=== PATIENT | female | born 1975 | race Caucasian/White ===

== ENCOUNTER 2021-04-26 10:21 | Outpatient (REF) | payer OTHER, SELFPAY ==
--- NOTE | ~2021-04-26 | MM_ITS ---
EXAMINATION: MM SCREENING DIGITAL BREAST TOMOSYNTHESIS, BILATERAL CLINICAL INFORMATION: Screening. Asymptomatic. The lifetime risk of breast cancer based on the Tyrer-Cuzick Model is 13%. COMPARISON: Outside mammography: 05/05/2020, 04/24/2020 ([facility]). TECHNIQUE: Digital breast tomosynthesis is performed in both the craniocaudal and mediolateral oblique views along with computer-aided detection (CAD). Synthesized 2D images are generated from the tomosynthesis. FINDINGS: There are scattered areas of fibroglandular density (ACR BI-RADS breast composition Category b). There are no significant masses, abnormal calcifications, or other abnormalities. Left breast has a stable macrolobulated nodule posterior 11:00 position with adjacent biopsy clip marker. There is no developing density. The axilla and skin contours are unremarkable. MM/MM tomosynthesis screening BI IMPRESSION: No mammographic evidence of malignancy. ASSESSMENT: BI-RADS 2: Benign RECOMMENDATION: Routine annual mammography screening. This patient's information was entered into a reminder system with a target due date for their next mammogram.
== END 2021-04-26 10:22 | disposition home or self-care (01) ==
LOC: HO.MAMMO 10:21
PROVIDERS: Absent Provider Obstetrics & Gynecology; PCP Family Medicine; Visit Provider Family Medicine
DX: Z12.31 Encounter for screening mammogram for malignant neoplasm of breast (principal)
CPT/HCPCS: 77063; 77067

== ENCOUNTER → 2021-09-14 09:00 | Outpatient (BNVA) | payer OTHER, SELFPAY | PROVIDERS: PCP Family Medicine; Visit Provider Physician Assistant | DX: Z13.89 Encounter for screening for other disorder (principal) ==

== ENCOUNTER 2021-12-09 09:24 | Day surgery (SDC) | payer OTHER, SELFPAY ==
[2021-12-03 13:08] VITALS: BMI 29.2
--- NOTE | 2021-12-08 08:58 | HO.ANESPROP2 ---
Documented by User: Caprice Leiva NP 12/08/21 08:59 HPI - Anesthesia Eval Consult details Narrative: 46yo F for Colonoscopy PMFSH Active Problems Active Problems: All Active Problems (Updated 12/03/21 @ 13:07 by Dionne Chung, NOA) Positive colorectal cancer screening using Cologuard test (Acute) Past Medical History Medical History No pertinent past medical history Family History Family History Mother HTN (hypertension) Father Anxiety disorder Agoraphobia Maternal Grandmother Breast cancer Thyroid disease Maternal Grandfather Stroke Paternal Grandfather Heart attack Colon cancer Heart disease Sister Scoliosis Surgical History Surgical History H/O tubal ligation (~03/13/02) History of ankle surgery Hx of section Hx of removal of cyst Social History Social History (Updated 12/09/21 @ 10:07 by Kati Gilliam MD) Household Members: Spouse Alcohol intake: current Alcohol intake frequency: holidays/special occasions only Patient Tobacco Use Status: Former Tobacco user Quit Date: 2019 Tobacco use type: Cigarette Cigarette Packs Per Day: 1 Years Smoked: 31 Substance Use Type: Marijuana Last Used Substance: Hours (ago) Are you DNR?: No Advance Directives: No Advance Directives Information Provided: Yes Advance Directives on File: No Recently lost weight without trying: No Eating poorly because of decreased appetite: No Nutrition Risks: No Nutritional Risk Meds Allergies Allergy/AdvReac Type Severity Reaction Status Date / Time No Known Allergies Allergy Verified 12/03/21 13:07 Home Medications Medication Instructions Recorded Confirmed Last Taken Type duloxetine 60 mg capsule,delayed 60 mg PO BID 09/14/21 12/03/21 Unknown History release (Cymbalta) levonorgestrel 20 mcg/24 hours (7 intrauterine 09/14/21 09/14/21 Unknown History yrs) 52 mg intrauterine device (Mirena) loratadine 10 mg tablet (Claritin) 10 mg PO DAILY 09/14/21 12/03/21 Unknown History Exam Exam Date and Time: December 08, 2021 0858 Height,Weight and Vital Signs: Height 5 ft 2 in Weight 72.575 kg Assessment and Plan Assessment Anesthesia Assessment: Chart Reviewed Documented by User: Kati Gilliam MD 12/09/21 10:53 PMFSH Active Problems Active Problems: All Active Problems (Updated 12/03/21 @ 13:07 by Dionne Chung, RN) Positive colorectal cancer screening using Cologuard test (Acute) Anxiety/Depression Past Medical History Medical History No pertinent past medical history Family History Family History Mother HTN (hypertension) Father Anxiety disorder Agoraphobia Maternal Grandmother Breast cancer Thyroid disease Maternal Grandfather Stroke Paternal Grandfather Heart attack Colon cancer Heart disease Sister Scoliosis Family history of problems with anesthesia: No Surgical History Surgical History H/O tubal ligation (~03/13/02) History of ankle surgery Hx of section Hx of removal of cyst History of Problems with Anesthesia: No Social History Social History (Updated 12/09/21 @ 10:07 by Kati Gilliam MD) Household Members: Spouse Alcohol intake: current Alcohol intake frequency: holidays/special occasions only Patient Tobacco Use Status: Former Tobacco user Quit Date: 2019 Tobacco use type: Cigarette Cigarette Packs Per Day: 1 Years Smoked: 31 Substance Use Type: Marijuana Last Used Substance: Hours (ago) Are you DNR?: No Advance Directives: No Advance Directives Information Provided: Yes Advance Directives on File: No Recently lost weight without trying: No Eating poorly because of decreased appetite: No Nutrition Risks: No Nutritional Risk Meds Allergies Allergy/AdvReac Type Severity Reaction Status Date / Time No Known Allergies Allergy Verified 12/03/21 13:07 Home Medications Medication Instructions Recorded Confirmed Last Taken Type duloxetine 60 mg capsule,delayed 60 mg PO BID 09/14/21 12/03/21 Unknown History release (Cymbalta) levonorgestrel 20 mcg/24 hours (7 intrauterine 09/14/21 09/14/21 Unknown History yrs) 52 mg intrauterine device (Mirena) loratadine 10 mg tablet (Claritin) 10 mg PO DAILY 09/14/21 12/03/21 Unknown History Exam Airway Mallampati Class: II TM Dist: >3cm Neck ROM: Full Loose/Missing/Broken Teeth: No (Patient denies) Heart: RRR Lungs: Wheezes bilaterally. Lungs CTAB post albuterol treatment Other: Patient admits to recent cold, cough but denies fever, malaise. Afebrile today. Assessment and Plan Assessment Anesthesia Assessment: Anesthesia Plan Discussed Final Anesthetic Review Family History of Problems with Anesthesia: No History of Problems with Anesthesia: No NPO: Yes ASA Class: II Final Preanesthetic Review: No Changes in Pt Med Stat, Meds/Allgs Chart Reviewed, Consent Obtained/Reviewed and Anes Risks/Benef Reviewed Patient Risk: Intermediate Procedure Risk: Low Assessment/Block/Sedation in SS: Assess/Block/Sedation-SS Anesthetic Plan Anesthetic Plan: MAC: Disposition: Standard PACU
[2021-12-09 10:13] VITALS: PULSE 92; RESP 16; O2SAT 100
[2021-12-09] MEDS: Albuterol Sulfate (0.083%) 2.5 MG/3 ML VIAL.NEB INHALE (10:13)
--- NOTE | 2021-12-09 10:13 | MHC.SHP ---
Pre-Procedural Eval Section A Date of Service: 12/09/21 Section B Chief Complaint: Other fecal abnormalities Details of Present Illness: pos cologuard Relevant Family History (Specify if Yes): No Relevant Social History: None (ex smoker) Present Medications: see Short Stay Collaborative assessment Medical History: No relevant PMH History of Previous Operations: Relevant previous surgery/procedure and date(s) (H/O tubal ligation (~03/13/02) History of ankle surgery Hx of section Hx of removal of cyst) Allergies: Allergies Allergy/AdvReac Type Severity Reaction Status Date / Time No Known Allergies Allergy Verified 12/03/21 13:07 Review of Systems Sugical H&P ROS: Negative: Constitution, Cardiovascular, Respiratory, Neurological, Psychiatric, Hem-Onc, Allergic/Immunologic, Gastrointestinal, Genitourinary, Musculoskeletal, Integumentary, Endocrine and Eyes/Ears/Nose/Throat Exam Surgical H&P Exam: Normal: HEENT, Normal: Heart, Normal: Lungs, Normal: Extremities, Normal: Abdomen, Normal: Skin and Normal: Neurological Plan Diagnosis/Plan: Unchanged I have reviewed the history and physical and performed a pertinent physical examination on my patient. No changes have occurred unless specified.
[2021-12-09] MEDS: Lactated Ringers 1,000 ML 100 ML IVCONT (10:20)
--- NOTE | 2021-12-09 11:04 | W.PM.OPN ---
Operative Note Operative Note Date of Service: 12/09/21 Narrative: Operative Information Procedure Description: Colonoscopy Indication: pos cologuard test Anesthesia: MAC COLONOSCOPY Instrument: Olympus variable stiffness pediatric scope 190L Colonoscopy Monitoring: Vital signs and clinical assessment, continuous EKG monitoring, Pulse oximetry, Carbon Dioxide monitoring and blood pressure monitoring were done throughout the procedure. Colon withdrawal time was 12 minutes. Procedure: The patient was placed in the left lateral decubitis position and pre-procedure medications were administered. After a digital rectal examination of the ano-rectum, the video colonoscope was inserted into the rectum and advanced through the colon to the cecum/TI. The colonoscope was slowly withdrawn in a retrograde panoramic fashion and the colon mucosa was carefully examined including a retroflexed view of the rectum. Findings and interventions are described below. Procedure Difficulty: easy Findings: Terminal Ileum-normal Right sided retroflexion --normal Cecum:normal Ascending Colon: normal Transverse Colon -normal Descending Colon: 10 mm sessile polyp removed with cold snare, x 1 clip applied for hemostasis Sigmoid Colon: 10 mm sessile polyp removed with cold snare Rectum: Retroflexion with small internal hemorrhoids, grade I, x2 sessile polyps 8-10 mm removed with cold snare Anorectum - normal Colon preparation: [place] Bowel Preparation Scale Right colon; 3 Transverse colon: 3 Left colon; 3 (0 = Unprepared colon segment with mucosa not seen due to solid stool that cannot be cleared. 1 = Portion of mucosa of the colon segment seen, but other areas of the colon segment not well seen due to staining, residual stool and/or opaque liquid. 2 = Minor amount of residual staining, small fragments of stool and/or opaque liquid, but mucosa of colon segment seen well. 3 = Entire mucosa of colon segment seen well with no residual staining, small fragments of stool or opaque liquid) Impression and Post Procedure Diagnosis: polyps internal hemorrhoids Plan: High fiber diet leaflet Avoid straining at stool, epsom salts and sitz bath, anusol supps or cream Repeat Colonoscopy in 3 years due to polyp burden or earlier if clinically indicated Above findings were reviewed with the patient and relevant handouts were provided if indicated.
[2021-12-09 12:02] VITALS: BP 106/79; PULSE 93; RESP 16; TEMP 36.4; O2SAT 99
[2021-12-09 12:17] VITALS: BP 123/80; PULSE 78; RESP 18; TEMP 36.3; O2SAT 100
== END 2021-12-09 13:12 | disposition home or self-care (01) ==
PROVIDERS: PCP Family Medicine; Visit Provider Internal Medicine Gastroenterology
PROC: 0DJD8ZZ Inspection of Lower Intestinal Tract, Via Natural or Artificial Opening Endoscopic (ICD-10-PCS; CPT 45378; principal; 2021-12-09 11:20)
DX: R19.5 Other fecal abnormalities (principal); D12.5 Benign neoplasm of sigmoid colon; K63.5 Polyp of colon; K62.1 Rectal polyp; K64.0 First degree hemorrhoids; Z79.899 Other long term (current) drug therapy; Z98.51 Tubal ligation status; Z87.891 Personal history of nicotine dependence
CPT/HCPCS: 45385; 88305; 94640

== ENCOUNTER 2022-04-29 10:43 | Outpatient (REF) | payer OTHER, SELFPAY ==
--- NOTE | ~2022-04-29 | MM_ITS ---
EXAMINATION: MM SCREENING DIGITAL BREAST TOMOSYNTHESIS, BILATERAL CLINICAL INFORMATION: Screening. Asymptomatic. The lifetime risk of breast cancer based on the Tyrer-Cuzick Model is 15%. COMPARISON: Mammography: 04/26/2021; outside imaging from [facility]: Left breast ultrasound 05/05/2020, mammography 05/05/2020 and 04/24/2020. TECHNIQUE: Digital breast tomosynthesis is performed in both the craniocaudal and mediolateral oblique views along with computer-aided detection (CAD). Synthesized 2D images are generated from the tomosynthesis. FINDINGS: There are scattered areas of fibroglandular density (ACR BI-RADS breast composition Category b). There are no significant masses, abnormal calcifications, or other abnormalities. Parenchymal pattern is similar to prior studies. No developing density or architectural abnormality. Left breast is stable macrolobulated nodule with adjacent biopsy clip marker posterior 11:00 position. The axilla and skin contours are unremarkable. No significant changes. MM/MM tomosynthesis screening BI IMPRESSION: No mammographic evidence of malignancy. ASSESSMENT: BI-RADS 2: Benign RECOMMENDATION: Routine annual mammography screening. This patient's information was entered into a reminder system with a target due date for their next mammogram.
== END 2022-04-29 10:44 | disposition home or self-care (01) ==
LOC: HO.MAMMO 10:43
PROVIDERS: PCP Family Medicine; Visit Provider Family Medicine
DX: Z12.31 Encounter for screening mammogram for malignant neoplasm of breast (principal)
CPT/HCPCS: 77063; 77067

== ENCOUNTER 2023-05-05 10:10 | Outpatient (REF) | payer OTHER, SELFPAY ==
--- NOTE | ~2023-05-05 | MM_ITS ---
EXAMINATION: MM SCREENING DIGITAL BREAST TOMOSYNTHESIS, BILATERAL CLINICAL INFORMATION: Screening. Asymptomatic. COMPARISON: Mammography: This study is compared with prior exams dating back to 2019. TECHNIQUE: Digital breast tomosynthesis is performed in both the craniocaudal and mediolateral oblique views along with computer-aided detection (CAD). Synthesized 2D images are generated from the tomosynthesis. FINDINGS: There are scattered areas of fibroglandular density (ACR BI-RADS breast composition Category b). There are no significant masses, abnormal calcifications, or other abnormalities. There is a tissue marker present in the left breast from prior benign percutaneous biopsy. MM/MM tomosynthesis screening BI IMPRESSION: No mammographic evidence of malignancy. ASSESSMENT: BI-RADS BI-RADS 2 - Benign Findings RECOMMENDATION: Routine annual mammography screening. 1 year F/U This examination should not preclude the clinical evaluation of a suspicious palpable abnormality. This patient's information was entered into a reminder system with a target due date for their next mammogram.
== END 2023-05-05 10:11 | disposition home or self-care (01) ==
LOC: HO.MAMMO 10:10
PROVIDERS: PCP Family Medicine; Visit Provider Family Medicine
DX: Z12.31 Encounter for screening mammogram for malignant neoplasm of breast (principal)
CPT/HCPCS: 77063; 77067

== ENCOUNTER → 2023-05-05 10:30 | Outpatient (BNV) | payer OTHER, SELFPAY | PROVIDERS: PCP Family Medicine; Visit Provider Radiology Diagnostic Radiology | DX: Z12.31 Encounter for screening mammogram for malignant neoplasm of breast (principal) | CPT/HCPCS: 77063; 77067 ==

== ENCOUNTER 2024-03-15 12:43 | Outpatient (REF) | payer OTHER, SELFPAY ==
[2024-03-15 14:59] LABS: C Reactive Protein 0.26 mg/dL (< or = 0.50); Rheumatoid Factor < 13.0 IU/mL (<15.0); Uric Acid 5.7 mg/dL (2.4-5.7)
[2024-03-15 15:44] LABS: Erythrocyte Sedimentation Rate 8 MM/HR (0-20)
[2024-03-20 14:37] LABS: Cyclic Citrullinated Peptide <16 UNITS
[2024-03-21 14:49] LABS: Anti Nuclear Antibody Screen NEGATIVE (NEGATIVE)
== END 2024-03-15 12:44 | disposition home or self-care (01) ==
LOC: HO.LAB 12:43
PROVIDERS: PCP Family Medicine; Visit Provider Family Medicine
DX: M25.50 Pain in unspecified joint (principal)
CPT/HCPCS: 36415; 84550; 85652; 86038; 86140; 86200; 86431

== ENCOUNTER 2024-05-10 10:22 | Outpatient (REF) | payer OTHER, SELFPAY | END 2024-05-10 10:23 | disposition home or self-care (01) | LOC: HO.MAMMO 10:22 | PROVIDERS: PCP Family Medicine; Visit Provider Family Medicine | DX: Z12.31 Encounter for screening mammogram for malignant neoplasm of breast (principal) | CPT/HCPCS: 77063; 77067 ==

== ENCOUNTER → 2024-05-10 10:30 | Outpatient (BNV) | payer OTHER, SELFPAY | PROVIDERS: PCP Family Medicine; Visit Provider Internal Medicine | DX: Z12.31 Encounter for screening mammogram for malignant neoplasm of breast (principal) | CPT/HCPCS: 77063; 77067 ==

== ENCOUNTER 2024-06-15 09:25 | Outpatient (REF) | payer OTHER, SELFPAY | END 2024-06-15 09:26 | disposition home or self-care (01) | LOC: HO.XRAY 09:25 | PROVIDERS: PCP Family Medicine; Visit Provider Family Medicine | DX: M25.551 Pain in right hip (principal); M25.552 Pain in left hip | CPT/HCPCS: 73502 ==

== ENCOUNTER → 2024-06-15 09:40 | Outpatient (BNV) | payer OTHER, SELFPAY | PROVIDERS: PCP Family Medicine; Visit Provider Radiology Diagnostic Radiology | DX: M25.552 Pain in left hip (principal) | CPT/HCPCS: 73502 ==

== ENCOUNTER → 2024-06-28 10:00 | Outpatient (AMB) | payer OTHER, SELFPAY ==
--- NOTE | 2024-06-28 08:04 | A.OFFVIS_ITS ---
Intake Visit Reasons: Former Smoker Allergies No Known Allergies Allergy (Verified 12/28/21 10:26) HPI HPI Former Smoker: Details: Initial visit for this 49yo former smoker with a 35PYH. Patient started smoking at age 12 for 37 years at 1ppd. . Reports marijuana use - vape 3-4 x a week. Denies second hand smoke exposure. Denies exposure to chemicals or substances like asbestos. . Denies known family history of lung cancer. Denies personal history of cancers. Denies chest CT in last year. . Denies recent travel outside the [place]. - [place] Denies recent respiratory illness or recent hospitalization for respiratory issues. Report testing positive for COVID. Admits receiving COVID Vaccine. . Denies fever, chills, new/worsening cough, hemoptysis, hoarseness or dysphagia. Denies significant chest pain, significant dyspnea or unintentional weight loss. Patient Lung Cancer Screening Questionnaire reviewed with patient by provider. . Shared Decision Making Completed. Patient meets criteria. Discussed in detail with patient, the risk vs benefit of LDCT screening. Patient consents to proceed with scan. Discussedand encouraged continued smoking cessation. [facility] Medical History (Updated 06/28/24 @ 10:15 by Aimee Lovelace PA-C) Tubular adenoma of colon Personal history of nicotine dependence Surgical History (Updated 06/03/24 @ 13:29 by Aimee Lovelace PA-C) History of tubal ligation History of History of colonoscopy Hx of removal of cyst History of ankle surgery Family History Mother HTN (hypertension) Father Anxiety disorder Agoraphobia Maternal Grandmother Breast cancer Thyroid disease Maternal Grandfather Stroke Paternal Grandfather Heart attack Colon cancer Heart disease Sister Scoliosis Social History (Updated 06/28/24 @ 10:16 by Aimee Lovelace PA-C) Household Members: Spouse Alcohol intake: current Alcohol intake frequency: holidays/special occasions only Patient Tobacco Use Status: Former Tobacco user Tobacco use type: Cigarette Cigarette Packs Per Day: 1 Years Smoked: (onset 12yo, 1ppd x 37yrs, 35pyh) Substance Use Type: Marijuana Assessment & Plan Assessment & Plan (1) Personal history of nicotine dependence: Comment: (onset 12yo, 1ppd x 37yrs, 35pyh) Code(s): Z87.891 - Personal history of nicotine dependence Category: Medical Plan: - SDM visit completed today in office. - Patient meets criteria for LDCT for lung cancer screening purposes and is asymptomatic. - Smoking cessation counseling offered. Patients can always call [phone]. - Will arrange for a LDCT scan of the chest for screening purposes at [facility]. - Risks, benefits, and alternatives were discussed in detail and the patient agrees to proceed. - Risks discussed include but are not limited to: radiation exposure, anxiety during testing and while awaiting results, false negatives, false positives and possibility of additional intervention such as further imaging or surgical procedures for benign disease. - Benefits are obviously detection of lung cancer at an early stage which can lead to improved outcomes. - Discussed the importance of screening program compliance with adherence to yearly LDCT scan as scheduled - or sooner interval scans for personalized screening regimen. - Discussed follow up plan. Our office will send a letter discussing results and if needed set up phone call and office visit based on CT findings. - Patient educated on results categorization and the management decisions for suspicious findings potentially found on the screening LDCT scan. Any patient with a Lung RADS score of 3 or 4 will be reviewed by a multidisciplinary team at [facility] to form a plan of action in regards to scan findings. - If further work up is warranted for a suspicious lung finding this will be followed by the Lung Cancer Screening program in conjunction with the Thoracic Surgery Department at [facility]. - A copy of the office note and LDCT will be sent to the patient's PCP - as well as documentation on any associated further plans of care. - Incidental findings on LDCT are the PCP's responsibility. These findings are indicated with an S finding on the LDCT Assessment. A note discussing the findings will be sent to the PCP who is then responsible for further management. - All questions answered.? Coding Level of Care Code Lung Cancer Screening [id number] Diagnoses Personal history of nicotine dependence Z87.891
== END | disposition home or self-care (01) ==
PROVIDERS: PCP Family Medicine; Visit Provider Physician Assistant Medical
CPT/HCPCS: G0296

== ENCOUNTER 2024-06-28 10:15 | Outpatient (REF) | payer OTHER, SELFPAY | END 2024-06-28 10:16 | disposition home or self-care (01) | LOC: HO.CT 10:15 | PROVIDERS: PCP Family Medicine; Visit Provider Physician Assistant Medical | DX: Z12.2 Encounter for screening for malignant neoplasm of respiratory organs (principal); Z87.891 Personal history of nicotine dependence ==

== ENCOUNTER → 2024-06-28 10:16 | Outpatient (BNV) | payer OTHER, SELFPAY | PROVIDERS: PCP Family Medicine; Visit Provider Specialist | DX: Z87.891 Personal history of nicotine dependence (principal) | CPT/HCPCS: 71271 ==

== ENCOUNTER 2024-08-01 08:26 | Day surgery (SDC) | payer OTHER, SELFPAY ==
--- NOTE | 2024-07-31 10:46 | P.CONAN_ITS ---
Documented by User: Caprice Leiva NP 07/31/24 10:47 HPI - Anesthesia Eval Consult details Narrative: 49yo F for Colonoscopy Anesthesia Pre-Procedure Meds Is the patient on any of the following meds?: GLP1/DPP4 PMFSH Active Problems Active Problems: All Active Problems Tubular adenoma of colon (Acute) Personal history of nicotine dependence (Acute) Past Medical History Medical History (Updated 07/31/24 @ 07:45 by Omayra Ashby RN) Marijuana smoker Smoker Tubular adenoma of colon Personal history of nicotine dependence Family History Family History Mother HTN (hypertension) Father Anxiety disorder Agoraphobia Maternal Grandmother Breast cancer Thyroid disease Maternal Grandfather Stroke Paternal Grandfather Heart attack Colon cancer Heart disease Sister Scoliosis Family history of problems with anesthesia: No Surgical History Surgical History (Updated 06/03/24 @ 13:29 by Aimee Lovelace PA-C) History of tubal ligation History of History of colonoscopy Hx of removal of cyst History of ankle surgery History of Problems with Anesthesia: No Social History Social History (Updated 06/28/24 @ 10:16 by Aimee Lovelace PA-C) Household Members: Spouse Are you a primary health careers instructor to a significant other at home: No Do you presently have visiting nurse or other home services: No Alcohol intake: current Alcohol intake frequency: holidays/special occasions only Patient Tobacco Use Status: Former Tobacco user Tobacco use type: Cigarette Cigarette Packs Per Day: 1 Years Smoked: (onset 12yo, 1ppd x 37yrs, 35pyh) Use of substances other than those prescribed or required for medical reasons: Yes Substance Use Type: Marijuana Have you been hit, kicked, punched, or otherwise hurt by someone within the past year? If so, by whom?: No Are you DNR?: No Advance Directives: No Advance Directives Information Provided: Yes Recently lost weight without trying: No Meds Allergies Allergy/AdvReac Type Severity Reaction Status Date / Time No Known Allergies Allergy Verified 12/28/21 10:26 Home Medications ?Medication ?Instructions ?Recorded ?Confirmed ?Last Taken ?Type duloxetine 60 mg capsule,delayed 60 mg PO BID 09/14/21 12/28/21 Unknown History release (Cymbalta) levonorgestrel 21 mcg/24 hr (up to intrauterine 09/14/21 12/28/21 Unknown History 8 years) 52 mg intrauterine device (Mirena) loratadine 10 mg tablet (Claritin) 10 mg PO DAILY 09/14/21 12/28/21 Unknown History Ozempic 07/31/24 07/31/24 Unknown History Assessment and Plan Assessment Anesthesia Assessment: Chart Reviewed Final Anesthetic Review Family History of Problems with Anesthesia: No History of Problems with Anesthesia: No Documented by User: Paco Perez MD 08/01/24 10:40 [facility] Past Medical History Medical History (Updated 07/31/24 @ 07:45 by Omayra Ashby RN) Marijuana smoker Smoker Tubular adenoma of colon Personal history of nicotine dependence Family History Family History Mother HTN (hypertension) Father Anxiety disorder Agoraphobia Maternal Grandmother Breast cancer Thyroid disease Maternal Grandfather Stroke Paternal Grandfather Heart attack Colon cancer Heart disease Sister Scoliosis Surgical History Surgical History (Updated 06/03/24 @ 13:29 by Aimee Lovelace PA-C) History of tubal ligation History of History of colonoscopy Hx of removal of cyst History of ankle surgery Social History Social History (Updated 06/28/24 @ 10:16 by Aimee Lovelace PA-C) Household Members: Spouse Are you a primary health careers instructor to a significant other at home: No Do you presently have visiting nurse or other home services: No Alcohol intake: current Alcohol intake frequency: holidays/special occasions only Patient Tobacco Use Status: Former Tobacco user Tobacco use type: Cigarette Cigarette Packs Per Day: 1 Years Smoked: (onset 12yo, 1ppd x 37yrs, 35pyh) Use of substances other than those prescribed or required for medical reasons: Yes Substance Use Type: Marijuana Have you been hit, kicked, punched, or otherwise hurt by someone within the past year? If so, by whom?: No Are you DNR?: No Advance Directives: No Advance Directives Information Provided: Yes Recently lost weight without trying: No Meds Allergies Allergy/AdvReac Type Severity Reaction Status Date / Time No Known Allergies Allergy Verified 12/28/21 10:26 Home Medications ?Medication ?Instructions ?Recorded ?Confirmed ?Last Taken ?Type duloxetine 60 mg capsule,delayed 60 mg PO BID 09/14/21 12/28/21 Unknown History release (Cymbalta) levonorgestrel 21 mcg/24 hr (up to intrauterine 09/14/21 12/28/21 Unknown History 8 years) 52 mg intrauterine device (Mirena) loratadine 10 mg tablet (Claritin) 10 mg PO DAILY 09/14/21 12/28/21 Unknown History Ozempic 07/31/24 07/31/24 Unknown History Exam Airway Mallampati Class: II TM Dist: <=3cm Neck ROM: Full Loose/Missing/Broken Teeth: No Heart: ok Lungs: ok Assessment and Plan Assessment Anesthesia Assessment: Anesthesia Plan Discussed Final Anesthetic Review NPO: Yes ASA Class: II Final Preanesthetic Review: No Changes in Pt Med Stat, Meds/Allgs Chart Reviewed, Consent Obtained/Reviewed and Anes Risks/Benef Reviewed Patient Risk: Intermediate Procedure Risk: Low Anesthetic Plan Anesthetic Plan: MAC: and Agree w/ Assess. and Plan Disposition: Standard PACU
[2024-08-01 09:03] VITALS: BP 122/86; PULSE 109; RESP 16; TEMP 36.6; O2SAT 97; BMI 26.3
[2024-08-01] MEDS: Lactated Ringers 1,000 ML 100 ML IVCONT (09:11)
--- NOTE | 2024-08-01 09:37 | P.HPSUR_ITS ---
Pre-Procedural Eval Section A - 24 Hr Update-Section A only Date of Service: 08/01/24 Section B - Complete if H&P > 30 days Chief Complaint: Polyp of colon Relevant Family History (Specify if Yes): No Relevant Social History: Tobacco Use Present Medications: see Short Stay Collaborative assessment Medical History: Significant History (Marijuana smoker Smoker Tubular adenoma of colon Personal history of nicotine dependence) History of Previous Operations: Relevant previous surgery/procedure and date(s) (History of tubal ligation History of History of colonoscopy Hx of removal of cyst History of ankle surgery) Allergies: Allergies Allergy/AdvReac Type Severity Reaction Status Date / Time No Known Allergies Allergy Verified 12/28/21 10:26 Review of Systems Sugical H&P ROS: Negative: Constitution, Cardiovascular, Respiratory, Neurologic al, Psychiatric, Hem-Onc, Allergic/Immunologic, Gastrointestinal, Genitourinary, Musculoskeletal, Integumentary, Endocrine and Eyes/Ears/Nose/Throat Exam Surgical H&P Exam: Normal: HEENT, Normal: Heart, Normal: Lungs, Normal: Extremities, Normal: Abdomen, Normal: Skin and Normal: Neurological Plan Diagnosis/Plan: Unchanged I have reviewed the history and physical and performed a pertinent physical examination on my patient. No changes have occurred unless specified. Time Spent With Patient Time: Total time managing care of this patient today ____ minutes.
--- NOTE | 2024-08-01 10:51 | P.OPN-COLO_ITS ---
Colonoscopy Operative Note Operative Note Date of Service: 08/01/24 Narrative: Operative Information Procedure Description: Colonoscopy Indication: hx of colon polyps Anesthesia: MAC COLONOSCOPY Instrument: Olympus variable stiffness pediatric scope 190L Colonoscopy Monitoring: Vital signs and clinical assessment, continuous EKG monitoring, Pulse oximetry, Carbon Dioxide monitoring and blood pressure monitoring were done throughout the procedure. Colon withdrawal time was 12 minutes. Procedure: The patient was placed in the left lateral decubitis position and pre-procedure medications were administered. After a digital rectal examination of the ano-rectum, the video colonoscope was inserted into the rectum and advanced through the colon to the cecum/TI. The colonoscope was slowly withdrawn in a retrograde panoramic fashion and the colon mucosa was carefully examined including a retroflexed view of the rectum. Findings and interventions are described below. Procedure Difficulty: easy Findings: Terminal Ileum-normal Cecum:normal right sided retroflexion- normal Ascending Colon: normal Transverse Colon -normal Descending Colon:normal Sigmoid Colon: 11-12 mm pedunculated polyp removed with cold snare with x 2 clips applied to base Rectum: Retroflexion with small internal hemorrhoids seen, grade I Anorectum - normal Intervention: cold snare and clips Colon preparation: [place] Bowel Preparation Scale Right colon; 2 Transverse colon: 2 Left colon; 2 (0 = Unprepared colon segment with mucosa not seen due to solid stool that cannot be cleared. 1 = Portion of mucosa of the colon segment seen, but other areas of the colon segment not well seen due to staining, residual stool and/or opaque liquid. 2 = Minor amount of residual staining, small fragments of stool and/or opaque liquid, but mucosa of colon segment seen well. 3 = Entire mucosa of colon segment seen well with no residual staining, small fragments of stool or opaque liquid) Impression and Post Procedure Diagnosis: colon polyp internal hemorrhoids Plan: High fiber diet leaflet Avoid straining at stool, epsom salts and sitz bath, anusol supps or cream Repeat Colonoscopy in 3-4 years or earlier if clinically indicated Above findings were reviewed with the patient and relevant handouts were provided if indicated.
[2024-08-01 10:57] VITALS: BP 115/76; PULSE 103; RESP 18; TEMP 37.1; O2SAT 98
[2024-08-01 11:13] VITALS: BP 119/85; PULSE 93; RESP 18; TEMP 37.1; O2SAT 100
== END 2024-08-01 11:40 | disposition home or self-care (01) ==
PROVIDERS: PCP Family Medicine; Visit Provider Internal Medicine Gastroenterology
PROC: 0DJD8ZZ Inspection of Lower Intestinal Tract, Via Natural or Artificial Opening Endoscopic (ICD-10-PCS; CPT 45378; principal; 2024-08-01 12:10)
DX: Z12.11 Encounter for screening for malignant neoplasm of colon (principal); Z86.0101 Personal history of adenomatous and serrated colon polyps; D12.5 Benign neoplasm of sigmoid colon; K64.0 First degree hemorrhoids; Z79.899 Other long term (current) drug therapy; F12.90 Cannabis use, unspecified, uncomplicated; Z87.891 Personal history of nicotine dependence; Z98.890 Other specified postprocedural states
CPT/HCPCS: 45385; 88305; J2003; J2704

== ENCOUNTER → 2024-08-01 08:26 | Outpatient (BNV) | payer OTHER, SELFPAY | PROVIDERS: PCP Family Medicine; Visit Provider Internal Medicine Gastroenterology | DX: Z12.11 Encounter for screening for malignant neoplasm of colon (principal); Z86.0100 Personal history of colon polyps, unspecified; D12.5 Benign neoplasm of sigmoid colon; K64.0 First degree hemorrhoids | CPT/HCPCS: 45385 ==